=== PATIENT | female | born 1935 | race Caucasian/White ===

== ENCOUNTER 2021-10-17 23:57 | Inpatient (IN) | payer OTHER, BC ==
[~2021-10-17] VITALS: Ht 165.1 cm; Wt 44.5 kg
--- NOTE | ~2021-10-17 | EMS ---
[address] [address] EMS Patient Care Report Name: SEYMOUR DEWEY Room #: REG Taran#: [id number] Admission: 10/17/21 Attend Phys: Discharge: Date of : [birth year] Report #: [id number] THIS REPORT FOR: //name// Report Transmitted: 10/18/2021 00:[address] [facility] MED-ACT Incident [id number] @ 10/17/2021 23:06 Incident Location [facility] [place] [address] Patient SEYMOUR DEWEY Female, 86 Years 1935 Patient Address [address] [place] [address] Patient History Hypertension (HTN), Patient Allergies No known allergies, Patient Medications Metoprolol, Chief Complaint Dyspena Disposition Transported No Lights/[place] Reason Breathing Problem Transported To [facility] Narrative Pt. states that she woke up with shortness of breath and a cough. She did not have these complaints before bedtime. She has no known medical hx other than [address] [address] EMS Patient Care Report Name: SEYMOUR DEWEY Room #: REG [facility].#: [id number] Admission: 10/17/21 Attend Phys: Discharge: Date of : [birth year] Report #: [id number] HTN. She denies any recent changes to her medications. She denies chest pain, nausea, fever, weakness. She states that she has a headache but believes that it is due to her continuous coughing and that she has been dizzy the last couple of days. No other complaints noted. Arrived to find the pt. seated on her couch. she was alert and had slightly labored respirations. She has a wet cough with fine crackles in the bases. Room air saturation for FD was 92%. Refer to the exam section for other physical findings. T(x)- monitoring only Outcome- The pt's BP remained elevated during transport. Her breathing effort did not change. No changes were noted in the pt's condition upon arrival at [place]. Initial Vitals @23:36P: 90,Pain: 0/10,NC Suspected: false @23:33P: 92,BP: 225/121,SpO2: 100, @23:47P: 81,R: 30,BP: 208/134,Temp: 98F,SpO2: 97, @PTAP: 90,R: 20,BP: 238/131,Pain: 0/10,GCS: 15,SpO2: 98,Revised Trauma: 12, Impression Acute Respiratory Distress (Dyspnea) Procedures @23:36 12-Lead ECG Response: UnchangedSucceeded @23:36 IV Therapy - Saline Lock 8cc (20 ga) Site: Antecubital-Right Response: UnchangedSucceeded @PTAOxygen FlowRate: 2 Device: Nasal Cannula (NC) Response: ImprovedSucceeded Timeline FRONT DESK COORDINATOR,Oxygen FlowRate: 2 Device: Nasal Cannula (NC) Response: ImprovedSucceeded, FRONT DESK COORDINATOR,BP: 238/131 M,PULSE: 90,RR: 20 R,SPO2: 98 Ox,ETCO2: ,BG: ,PAIN: 0,GCS: 15, 23:05,Call Received 23:05,Psap Call 23:06,Dispatched 23:07,En Route 23:14,On Scene 23:19,At Patient 23:33,BP: 225/121 M,PULSE: 92,RR: R,SPO2: 100 Ox,ETCO2: ,BG: ,PAIN: ,GCS: , 23:36,12-Lead ECG,Response: UnchangedSucceeded, 23:36,IV Therapy - Saline Lock 8cc 20 ga Site: Antecubital-Right,Response: UnchangedSucceeded, [facility] [address] [place] [address] EMS Patient Care Report Name: MACOSEYMOUR S [id number] Admission: 10/17/21 Attend Phys: Discharge: Date of : [birth year] Report #: [id number] 23:36,BP: / M,PULSE: 90,RR: R,SPO2: Ox,ETCO2: ,BG: ,PAIN: 0,GCS: , 23:40,Depart Scene 23:47,BP: 208/134 M,PULSE: 81,RR: 30 R,SPO2: 97 Ox,ETCO2: ,BG: ,PAIN: ,GCS: , 23:54,At Destination 00:11,Call Closed Disclaimer v1.1 Copyright 2020 [employer] This EMS Care Summary contains data elements from the applicable legal record (which may be displayed differently). It is designed to provide pertinent information for the following purposes: continuity of care, clinical quality, and state data reporting. The complete legal record is available to ED staff and administrators of the receiving hospital in [employer] Patient Tracker. All data is provided "as is."
[2021-10-18 00:10] VITALS: BP 218/83
[2021-10-18] MEDS ORDERED: LOSARTAN POTAS100 MG PO (01:09)
[2021-10-18] MEDS ORDERED: METOPROLOL SUCC50 MG PO (01:09)
[2021-10-18 02:14] LABS: ABSOLUTE NEUTROPHILS 11.4 thou/uL (1.4-8.2); BASOPHILS 0.4 % (0.0-2.0); EOSINOPHILS 0.3 % (0.0-3.0); HEMATOCRIT 46.8 % (37.0-47.0); HEMOGLOBIN 15.5 gm/dL (12.0-15.0); LYMPHOCYTES 5.3 % (24.0-44.0); MCH 32.2 pg (26.0-34.0); MCHC 33.1 g/dL (28.0-37.0); MCV 97.6 fL (80.0-100.0); PLATELET COUNT 194 thou/uL (150-400); RDW 12.6 % (10.5-14.5)
[2021-10-18 02:15] LABS: CALCIUM 8.9 mg/dL (8.5-10.1); CREATININE 0.6 mg/dL (0.6-1.0); POTASSIUM 3.3 mmol/L (3.5-5.1)
[2021-10-18 02:25] LABS: ALBUMIN 4.1 g/dL (3.4-5.0); TOTAL PROTEIN 7.6 g/dL (6.4-8.2)
[2021-10-18 02:41] LABS: URINE BILIRUBIN NEGATIVE (Negative); URINE BLOOD TRACE (Negative); URINE CLARITY CLEAR; URINE COLOR YELLOW; URINE GLUCOSE-RANDOM* NEGATIVE (Negative); URINE KETONES 1+ (Negative); URINE LEUKOCYTES-REFLEX NEGATIVE (Negative); URINE NITRITE-REFLEX NEGATIVE (Negative); URINE PROTEIN (DIPSTICK) 2+ (Negative); URINE SPECIFIC GRAVITY 1.025 (1.005-1.035); URINE UROBILINOGEN 0.2 E.U./dl (0.2-1.0)
[2021-10-18 03:37] LABS: BACTERIA-REFLEX 1-9 Few /HPF (None Seen); CASTS None Seen /LPF (None Seen); CRYSTALS None Seen /LPF (None Seen); MUCUS 4-6 Moderate strn/LPF (None Seen); SQUAMOUS 0-3 Few /LPF (0-3); URINE RBC 1-2 Rare /HPF (NONE SEEN); URINE WBC-REFLEX 0-5 Rare /HPF (0-5)
--- NOTE | 2021-10-18 07:45 | EKG ---
[address] [place] [address] ELECTROCARDIOGRAM REPORT Name: SEYMOUR DEWEY Room #: 170-5 ADM IN M.R.#: [id number] Admission: 10/18/21 Attend Phys: James Campbell MD Discharge: Date of : [birth year] Report #: [id number] [facility] ED Test Date: 2021-10-18 Test Time: 02:21:07 Pat Name: SEYMOUR DEWEY Department: Room: 170 Gender: F Gate Watchman: dayne hayes : 1935 Requested By: Shyanne Rendon Order Number: [id number] MD: Maykel Katz Measurements Intervals [place] Rate: 76 P: 50 DC: 158 QRS: -51 QRSD: 89 T: 49 QT: 379 QTc: 427 Interpretive Statements Sinus rhythm Left anterior fascicular block Posterior infarct, old No previous ECG available for comparison Electronically Signed On 10-18-2021 7:44:50 ASSISTANT KITCHEN MANAGER by Maykel Katz [email or web address] <ELECTRONICALLY SIGNED> By: Maykel Katz MD, [facility] 10/18/21 0744 0 0 Maykel Katz MD, FACC /EPI
[2021-10-18 08:00] VITALS: BP 124/50
[2021-10-18 11:09] LABS: FOLIC ACID 11.6 ng/mL (8.6-58.9)
--- NOTE | 2021-10-18 11:13 | 2DMMODE ---
[facility] [place] [address] 2 D/M-MODE ECHOCARDIOGRAM Name: SEYMOUR DEWEY Room #: 170-5 ADM IN [facility]#: [id number] Admission: 10/18/21 Attend Phys: James Campbell MD Discharge: Date of : [birth year] Report #: [id number] THIS REPORT FOR: cc: Torey Escalante MD, Stany A. MD Santiago, Patrick MD [facility] ~ APPROVED REPORT Study performed: 10/18/2021 10:13:41 EXAM: Comprehensive 2D, Doppler, and color-flow Echocardiogram Patient Location: Observation Room #: ER 5 BSA: 1.47 HR: 75 bpm BP: 124/50 mmHg Rhythm: NSR Other Information Study Quality: Good 2D Dimensions IVSd: 9.53 (7-11mm) LVOT Diam: 20.11 (18-24mm) LVDd: 33.68 mm PWd: 12.06 (7-11mm) Ascending Ao: 36.84 (22-36mm) LVDs: 21.67 (25-40mm) Left Atrium: 23.80 (27-40mm) Aortic Root: 30.31 mm Volumes Left Atrial Volume (Systole) Single Plane 4CH: 22.67 mL Single Plane 2CH: 25.97 mL Biplane LA Volume: 27.00 mL LA ESV Index: 19.00 mL/m2 Aortic Valve AoV Peak Sulaiman.: 1.46 m/s AO Peak Gr.: 8.49 mmHg LVOT Max P.80 mmHg LVOT Max V: 1.30 m/s ELIN Vmax: 2.84 cm2 Mitral Valve E/A Ratio: 0.9 MV Decel. Time: 332.91 ms [facility] [address] [place] [address] 2 D/M-MODE ECHOCARDIOGRAM Name: SEYMOUR DEWEY Room #: 1705 [facility] IN [facility]#: [id number] Admission: 10/18/21 Attend Phys: James Campbell, Discharge: Date of : [birth year] Report #: [id number] MV E Max Sulaiman.: 0.84 m/s MV A Sulaiman.: 0.89 m/s MV PHT: 96.54 ms Pulmonary Valve PV Peak Sulaiman.: 1.25 m/s PV Peak Gr.: 6.27 mmHg Tricuspid Valve TR Peak Sulaiman.: 2.67 m/s RAP Estimate: 7.00 mmHg TR Peak Gr.: 28.51 mmHg RVSP: 35.00 mmHg Left Ventricle The left ventricle is normal size. There is normal LV segmental wall motion. There is normal left ventricular wall thickness. Left ventricular systolic function is normal. The left ventricular ejection fraction is within the normal range. LVEF is 60-65%. Right Ventricle The right ventricle is normal size. The right ventricular systolic function is normal. Atria The left atrium size is normal. The right atrium size is normal. Aortic Valve Aortic valve is trileaflet. Trace aortic regurgitation. There is no aortic valvular stenosis. Mitral Valve The mitral valve is normal in structure. Mild mitral regurgitation. No evidence of mitral valve stenosis. Tricuspid Valve The tricuspid valve is normal in structure. Moderate tricuspid regurgitation. PAP35 mmHg Pulmonic Valve The pulmonary valve is normal in structure. Trace pulmonic regurgitation. Great Vessels The aortic root is normal in size. IVC is normal in size and collapses >50% with inspiration. Pericardium [facility] [address] [place] [address] 2 D/M-MODE ECHOCARDIOGRAM Name: SEYMOUR DEWEY Room #: 170-5 [facility] IN .R.#: [id number] Admission: 10/18/21 Attend Phys: James Campbell, Discharge: Date of : [birth year] Report #: [id number] There is no pericardial effusion. There is no pleural effusion. <Conclusion> Normal left ventricle size/wall thickness Ejection fraction 60-65% Normal right ventricle size/function Normal atrial size Normal aortic valve structure and function Mild mitral valve insufficiency Moderate tricuspid valve insufficiency Pulmonary systolic pressure estimated 35 mmHg No pericardial effusion Normal aortic root size. <ELECTRONICALLY SIGNED> By: Maykel Katz MD, [facility] 10/18/21 1113 12 12 Maykel Katz MD, FAC /INF
[2021-10-18] MEDS ORDERED: CEFUROXIME500 MG PO (11:40)
[2021-10-18] MEDS ORDERED: PREDNISONE 20 M20 M1 PO (11:41)
[2021-10-18 12:03] VITALS: BP 140/73
--- NOTE | 2021-10-18 13:02 | NUR ---
ORDERS FOR EVAL AND TREAT RECEIVED THIS AM HOWEVER Pt DISCHARGED FROM THE E.R. PRIOR TO BEING SEEN
== END 2021-10-18 12:03 | disposition home or self-care (01) | DRG 189 ==
LOC: ER 23:57 → EROBS 10-18 05:53
PROVIDERS: Emergency Medicine; ADMIT Internal Medicine; ATTEND Internal Medicine
DX: J96.01 Acute respiratory failure with hypoxia (principal); I16.0 Hypertensive urgency; I10 Essential (primary) hypertension; E87.6 Hypokalemia; Z66 Do not resuscitate; Z20.822 Contact with and (suspected) exposure to COVID-19; R53.81 Other malaise; Z79.899 Other long term (current) drug therapy; Z88.2 Allergy status to sulfonamides